=== PATIENT | female | born 1965 | race Caucasian/White ===

== ENCOUNTER 2016-09-13 13:49 | Emergency (ER) | payer OTHER ==
--- NOTE | 2016-09-23 16:41 | ER ---
ADMIT: 09/13/2016 RM/LOC: ER [facility] MR#: [id number] [id number] [address] [place] [address] Emergency Room Report SEX: F AGE: 51 : 1965 DATE: 09/13/2016 A 51-year-old, comes with 3 weeks' worth of abdominal bloating. She is very teary and dramatic. See T-sheet for history and physical. CT of the abdomen and pelvis is negative. CBC is normal. CMP and lipase are likewise within normal parameters. The patient is diagnosed with abdominal pain/bloating. Instructed to follow up with her primary doctor and discussed having a colonoscopy done at some point in the near future. Elliott Whitten MD/ mack JOB #: [id number] CC: Karson Davies MD, Attending Physician Ruben Jacinto MD, Family Physician
== END 2016-09-13 16:00 | disposition home or self-care (01) ==
LOC: ER 13:49
DX: R14.0 Abdominal distension (gaseous) (principal); R10.9 Unspecified abdominal pain; F17.210 Nicotine dependence, cigarettes, uncomplicated; Z90.49 Acquired absence of other specified parts of digestive tract; Z90.710 Acquired absence of both cervix and uterus; Z98.890 Other specified postprocedural states; Z79.899 Other long term (current) drug therapy